=== PATIENT | male | born 1940 | race Caucasian/White ===

== ENCOUNTER 2021-02-04 11:50 | Inpatient (IN) | payer OTHER ==
[~2021-02-04] VITALS: Ht 177.8 cm; Wt 74.8 kg
[2021-02-04] MEDS ORDERED: PREDNISONE20 MG PO (15:43)
[2021-02-04] MEDS ORDERED: CLINDAMYCIN HC300 MG PO (15:44)
[2021-02-04 16:09] LABS: HEMOGLOBIN 12.1 gm/dl (14.0-17.5); RED BLOOD COUNT 3.6 M/UL (4.20-5.50); WHITE BLOOD COUNT 7.5 K/UL (4.5-11.0)
[2021-02-04 16:35] LABS: BUN/CREATININE RATIO 24 (0-10)
[2021-02-05 06:35] LABS: HEMOGLOBIN 11.9 gm/dl (14.0-17.5); RED BLOOD COUNT 3.58 M/UL (4.20-5.50); WHITE BLOOD COUNT 6.6 K/UL (4.5-11.0)
[2021-02-05 07:07] LABS: BUN/CREATININE RATIO 18 (0-10)
[2021-02-06 05:46] LABS: HEMOGLOBIN 11.8 gm/dl (14.0-17.5); RED BLOOD COUNT 3.55 M/UL (4.20-5.50); WHITE BLOOD COUNT 6.2 K/UL (4.5-11.0)
[2021-02-06 06:20] LABS: BUN/CREATININE RATIO 22 (0-10)
[2021-02-07 07:05] LABS: HEMOGLOBIN 12.5 gm/dl (14.0-17.5); RED BLOOD COUNT 3.76 M/UL (4.20-5.50); WHITE BLOOD COUNT 6.8 K/UL (4.5-11.0)
[2021-02-07 07:32] LABS: BUN/CREATININE RATIO 15 (0-10)
[2021-02-07] MEDS ORDERED: ROCEPHIN IM/I2000 MG IV (12:06)
[2021-02-08 06:16] LABS: BUN/CREATININE RATIO 13 (0-10)
[2021-02-10 07:11] LABS: BUN/CREATININE RATIO 19 (0-10)
[2021-02-10] MEDS ORDERED: HYDROCODON-ACE1 EAC4 PO (16:25)
== END 2021-02-10 19:07 | disposition home health service (06) | DRG 863 ==
LOC: MED SURG 4 11:50
PROVIDERS: Physician Assistant; Physician Assistant Medical; ADMIT Internal Medicine
PROC: 02HV33Z Insertion of Infusion Device into Superior Vena Cava, Percutaneous Approach (ICD-10-PCS; principal; 2021-02-04)
DX: T81.40XA Infection following a procedure, unspecified, initial encounter (principal); Z16.11 Resistance to penicillins; Z16.29 Resistance to other single specified antibiotic; Y83.8 Other surgical procedures as the cause of abnormal reaction of the patient, or of later complication, without mention of misadventure at the time of the procedure; H66.42 Suppurative otitis media, unspecified, left ear; F17.210 Nicotine dependence, cigarettes, uncomplicated; Z20.822 Contact with and (suspected) exposure to COVID-19; H60.12 Cellulitis of left external ear; H91.90 Unspecified hearing loss, unspecified ear; D64.9 Anemia, unspecified; Z85.828 Personal history of other malignant neoplasm of skin; Z98.41 Cataract extraction status, right eye; Z98.42 Cataract extraction status, left eye; Z98.890 Other specified postprocedural states; Z82.49 Family history of ischemic heart disease and other diseases of the circulatory system; Z82.3 Family history of stroke; Z80.3 Family history of malignant neoplasm of breast; Z79.52 Long term (current) use of systemic steroids
CPT/HCPCS: 36415; 80048; 80053; 80202; 83036; 83735; 85025; 85027; 87040; 87070; 87205; C1751; J0696; J3370; J7050; J7070; U0002

== ENCOUNTER → 2021-03-13 | Outpatient (CLI) | payer OTHER ==
[~2021-03-13] MED LIST: CLINDAMYCIN HC300 MG PO; HYDROCODON-ACE1 EAC4 PO; PREDNISONE20 MG PO; ROCEPHIN IM/I2000 MG IV
== END ==
LOC: OPSV 11:51
DX: Z53.9 Procedure and treatment not carried out, unspecified reason (principal)
CPT/HCPCS: G0463